=== PATIENT | female | born 1955 | race Caucasian/White ===

== ENCOUNTER → 2018-07-01 13:57 | Outpatient (CLI) | payer OTHER, SELFPAY ==
--- NOTE | 2018-07-01 | DI.MG.S_ITS ---
BILATERAL DIGITAL SCREENING MAMMOGRAM 3D/2D WITH CAD: 07/01/2018 CLINICAL: Routine screening. Comparison is made to exams dated: 04/08/2016 mammogram, 03/08/2015 mammogram, 03/05/2014 mammogram, and 02/22/2014 mammogram - [facility]. The tissue of both breasts is heterogeneously dense. This may lower the sensitivity of mammography. Current study was also evaluated with a Computer Aided Detection (CAD) system. No significant masses, calcifications, or other findings are seen in either breast. There has been no significant interval change. IMPRESSION: NEGATIVE There is no mammographic evidence of malignancy. A 1 year screening mammogram is recommended. This exam was interpreted at Station ID: [id number]. NOTE: For mammograms, a report in lay terms will be sent to the patient. Approximately 15% of breast malignancies will not be visualized mammographically. In the management of a palpable breast mass, a negative mammogram must not discourage biopsy of a clinically suspicious lesion. Electronically Signed By: Bess banegas/jatin:07/01/2018 15:11:30 letter sent: Normal Exam ACR BI-RADS Category 1: Negative 3341F
== END ==
PROVIDERS: Visit Provider Internal Medicine
DX: Z12.31 Encounter for screening mammogram for malignant neoplasm of breast (principal)
CPT/HCPCS: 77063; 77067

== ENCOUNTER → 2019-06-09 14:34 | Outpatient (CLI) | payer OTHER, SELFPAY | PROVIDERS: PCP Internal Medicine; Visit Provider Internal Medicine | DX: M85.88 Other specified disorders of bone density and structure, other site (principal); Z78.0 Asymptomatic menopausal state | CPT/HCPCS: 77080 ==

== ENCOUNTER → 2020-06-29 13:43 | Outpatient (CLI) | payer OTHER, SELFPAY ==
[2020-07-01 20:38] LABS: COVID19 Sendout Not Detected (Not Detect)
== END ==
PROVIDERS: PCP Internal Medicine; Visit Provider Physician Assistant
DX: Z11.59 Encounter for screening for other viral diseases (principal)
CPT/HCPCS: 87635

== ENCOUNTER 2020-07-02 06:46 | Day surgery (SDC) | payer OTHER, SELFPAY ==
[2020-07-02 07:23] VITALS: BMI 27.4
[2020-07-02] MEDS: LACTATED RINGERS 1,000 ML 42 ML IV (07:23)
[2020-07-02 07:33] VITALS: BP 119/75; PULSE 70; RESP 16; TEMP 36.4; O2SAT 100
--- NOTE | 2020-07-02 07:45 | PM.HP.1 ---
History of Present Illness History of Present Illness Date Patient Seen: 07/02/20 Time Patient Seen: 07:45 Chief complaint: SD Narrative: The patient is a woman here for screening colonoscopy. Her last exam was 5 years ago. She had a grandmother from colon cancer. She has a personal history of having a polyp. Patient History Medical History Actinic keratosis (Acute) Adenomatous polyp (Acute) Anemia (Inactive) Carpal tunnel syndrome (Chronic ~1999) Chicken pox (Resolved ~1964) Depression (Acute ~1997) Heart murmur (Acute) Hyperlipidemia (Acute) Measles (Resolved ~1961) Mumps (Resolved ~1965) Neck pain (Chronic) Osteopenia (Chronic ~2014) Osteoporosis (Acute ~2016) Plantar fasciitis (Chronic ~2017) Plantar warts (Inactive ~2008) Restless leg syndrome (Chronic) Right wrist fracture (Resolved ~2014) Rubella (Resolved) Tinnitus (Chronic ~2015) Wears glasses (Chronic) Surgical History Anesthesia (Resolved) History of oral surgery (Resolved) History of tonsillectomy (Resolved ~09/1975) Family & Social History Family History Father Cancer Hypertension Pulmonary embolism Mother Diabetes mellitus History of heart disease Hypertension Mental health problem Stroke Brother Mental health problem Brother Diabetes mellitus Back problem Sister Arthritis Back problem Sister Sjogren's disease Back problem Thyroid condition Sister Diabetes mellitus Back problem Metabolic syndrome Goiter Sister Sjogren's disease Herniated disc Hypertension Back problem Grandfather Alcoholic Grandmother History of heart disease Hypertension Grandfather History of heart disease Grandmother Cancer Social History: household members spouse Tobacco & Substance use: Smoking Status Never smoker alcohol intake current alcohol intake frequency a few times a week Substance Use Type does not use Meds Home Medications and Allergies Home Medications Medication Instructions Recorded Confirmed Type One-A-Day Women's 50 Plus 1 tab PO DAILY 07/02/20 07/02/20 History alendronate 70 mg PO QWEEK 07/02/20 07/02/20 History ascorbic acid (vitamin C) [Vitamin 1,000 mg PO DAILY 07/02/20 07/02/20 History C] mark [id number]-kde-bor 2 tab PO BID 07/02/20 07/02/20 History [Citracal-D3 Plus Magnesium] ferrous sulfate [iron] 65 mg PO DAILY 07/02/20 07/02/20 History glucos sul [id number]-C-Mn 1 cap PO 07/02/20 History [Glucosamine Chondroitin] omega-3 fatty acids-fish oil [Fish 1 cap PO DAILY 07/02/20 07/02/20 History Oil] ibhyo-7s-efd-epa-fish oil [[place]-3 360 cap PO DAILY 07/02/20 07/02/20 History Fish Oil] Allergies Allergy/AdvReac Type Severity Reaction Status Date / Time codeine Allergy Mild Nausea Verified 07/02/20 07:09 Review of Systems Review of Systems Narrative: Frequent bowel movements ROS: Yes All systems reviewed with the patient and are negative except as otherwise documented Exam Vital Signs (past 8 hours): - 07/02/20 07:33 Temperature 97.5 F L Pulse Rate 70 Respiratory Rate 16 Blood Pressure 119/75 Pulse Oximetry 100 Oxygen Delivery Method Room Air Narrative Exam Narrative: Pleasant cooperative patient no apparent distress. Lungs are clear to auscultation. No rales or rhonchi. Heart regular rate and rhythm no murmur gallop. Abdomen is soft nontender without mass. No obvious hernias. Patient is alert and oriented x3. Assessment & Plan Assessment & Plan narrative: The patient for a screening colonoscopy. I have discussed the procedure with them. Risks of bleeding, perforation which would necessitate major operation, failure to find remove all lesions, the potential tattoo were all discussed. All questions were answered. They wished to proceed.
--- NOTE | 2020-07-02 07:47 | PM.PREOP ---
Pre-operative Note COVID-19 COVID-19 status: Negative Result date/Date tested (Pos, Neg/Pending): 06/29/20 Interval Note History & Physical reviewed/Exam performed by Physician: Yes Changes to H&P: No ASA Class (for procedural sedation): I
[2020-07-02] MEDS: ONDANSETRON 4 MG/2 ML INJ IV (07:55)
--- NOTE | 2020-07-02 08:10 | PM.OP.ENDO ---
Operative Date/Time/Diagnoses Date of procedure: 07/02/20 Time of procedure: 08:10 Pre-op diagnosis: Screening exam Post-op diagnosis: same Procedure & Clinicians Study performed: Colonoscopies abandoned. Patient essentially had a flexible sigmoidoscopy Same procedure as scheduled: No (Could not complete the colonoscopy) Indications: Screening. Personal history of polyps. Last exam 5 years ago. Surgeon: Michele Card Procedure Notes SCOAP/Timeout: Performed Procedure in detail: The patient is placed in left lateral decubitus position underwent IV sedation directed by the surgeon consisting of fentanyl and Versed. Digital exam was remarkable for a marked decrease in sphincter tone. There are no palpable masses. The scope was inserted advanced through the rectum into the sigmoid. When I reached about 70-80 cm there was an unusual twist to the colon and I tried to negotiate this repeatedly. It would not dilator untwist I repositioned the patient backed the scope out reinserted it and still could not get beyond this point. Therefore the procedure was abandoned. The scope was removed. I could not see any abnormalities to this point. Recommend patient have a barium enema. It is not clear this is a stricture or just a twist that I could not on twist. Scope withdrawal time: Not applicable Sedation minutes: 11 Findings: other findings (Incomplete exam due to a twist in her colon.) Specimen(s): none sent Complications: none Post-procedure Recommendations: Other recommendation (Barium enema) Follow up: as needed Disposition: PACU
[2020-07-02] MEDS: fentaNYL 250 MCG/5 ML INJ IV (08:12)
[2020-07-02] MEDS: MIDAZOLAM 5 MG/5 ML VIAL IV (08:12)
[2020-07-02 08:15] VITALS: BP 115/70; PULSE 73; RESP 14; TEMP 36.2; O2SAT 93
[2020-07-02 08:20] VITALS: BP 116/70; PULSE 72; RESP 15; O2SAT 97
[2020-07-02 08:25] VITALS: BP 123/77; PULSE 80; RESP 18; O2SAT 97
[2020-07-02 08:30] VITALS: BP 129/82; PULSE 84; RESP 16
[2020-07-02 08:33] VITALS: BP 125/80; PULSE 70; RESP 16; TEMP 36.3; O2SAT 97
--- NOTE | 2020-07-02 08:52 | SUR.PHASEII ---
Pts on his way, pt up and ambulating gait steady, drinking po fluids without problems. Dressed now and waiting for ride. All dc instructions given and pt verbalizes understanding. IV dcd and site clear
--- NOTE | 2020-07-02 09:03 | SUR.PHASEII ---
Pt dcd in stable condition via wc to gerard frye
== END 2020-07-02 09:03 | disposition home or self-care (01) ==
PROVIDERS: PCP Nurse Practitioner; Referring Provider Nurse Practitioner; Visit Provider Specialist
PROC: 0DJD8ZZ Inspection of Lower Intestinal Tract, Via Natural or Artificial Opening Endoscopic (ICD-10-PCS; CPT 45378; principal; 2020-07-02 07:45)
DX: Z12.11 Encounter for screening for malignant neoplasm of colon (principal); Z80.0 Family history of malignant neoplasm of digestive organs; Z86.010 Personal history of colon polyps
CPT/HCPCS: G0104; 99152; J2250; J2405; J3010

== ENCOUNTER → 2020-07-09 10:23 | Outpatient (CLI) | payer OTHER, SELFPAY ==
--- NOTE | 2020-07-09 10:25 | DI.MG.S_ITS ---
BILATERAL DIGITAL SCREENING MAMMOGRAM 3D/2D WITH CAD: 07/09/2020 CLINICAL: Routine screening. Comparison is made to exams dated: 07/01/2018 mammogram - [facility], 04/08/2016 mammogram, and 03/08/2015 mammogram - [facility]. The tissue of both breasts is heterogeneously dense. This may lower the sensitivity of mammography. Current study was also evaluated with a Computer Aided Detection (CAD) system. No significant masses, calcifications, or other findings are seen in either breast. There has been no significant interval change. IMPRESSION: NEGATIVE There is no mammographic evidence of malignancy. A 1 year screening mammogram is recommended. This exam was interpreted at Station ID: [id number]. NOTE: For mammograms, a report in lay terms will be sent to the patient. Approximately 15% of breast malignancies will not be visualized mammographically. In the management of a palpable breast mass, a negative mammogram must not discourage biopsy of a clinically suspicious lesion. Electronically Signed By: Candido fontanez/jatin:07/09/2020 11:31:13 letter sent: Normal Exam ACR BI-RADS Category 1: Negative 3341F
== END ==
PROVIDERS: PCP Nurse Practitioner; Referring Provider Nurse Practitioner; Visit Provider Nurse Practitioner
DX: Z12.31 Encounter for screening mammogram for malignant neoplasm of breast (principal)
CPT/HCPCS: 77063; 77067

== ENCOUNTER → 2020-07-22 12:36 | Outpatient (CLI) | payer OTHER, SELFPAY ==
--- NOTE | 2020-07-22 12:38 | DI.RAD.S_ITS ---
PROCEDURE: FL BARIUM ENEMA W AIR CONTRAST INDICATIONS: screening. Unable to complete colonoscopy COMPARISON: None. FINDINGS: KUB: Pre-procedural strategic marketing leader film demonstrates a normal bowel gas pattern. No suspicious abdominal calcifications. Visualized solid organ contours are normal in size. No suspicious bony lesions. Colon: There is adequate air-contrast opacification from the rectum to the cecum. No strictures, ulcers, polyps, or masses are seen. Haustral folds are normal in thickness throughout. No diverticula. IMPRESSION: Negative examination as above. Dictated by: Italo Crawford M.D. on 07/22/2020 at 16:46 Approved by: Italo Crawford M.D. on 07/22/2020 at 16:50
== END ==
PROVIDERS: PCP Nurse Practitioner; Referring Provider Specialist; Visit Provider Specialist
DX: Z12.11 Encounter for screening for malignant neoplasm of colon (principal)
CPT/HCPCS: 74280

== ENCOUNTER → 2020-08-02 07:15 | Outpatient (CLI) | payer OTHER, SELFPAY ==
[2020-08-02 08:40] LABS: Add Manual Diff / Slide Review NO; Basophils Absolute Auto 0 /uL (0-100); Basophils Percent Auto 0.8 % (0-2); Eosinophils Absolute Auto 100 /uL (0-450); Eosinophils Percent Auto 1.5 % (2-4); Hematocrit 38.2 % (36-46); Hemoglobin 12.8 g/dL (12.0-16.0); Lymphocytes Absolute Auto 1500 /uL (1100-4500); Lymphocytes Percent Auto 30.6 % (25-40); Mean Corpuscular HGB Conc 33.5 % (30-36); Mean Corpuscular Volume 92.8 fL (80-100); Monocytes Absolute Auto 500 /uL (0-900); Monocytes Percent Auto 10.6 % (3-14); Neutrophils Absolute Auto 2800 /uL (1500-7000); Neutrophils Percent Auto 56.5 % (50-75); Platelet Count 205 X10^3/uL (150-400); Red Blood Cell Count 4.12 X10^6/uL (4.0-5.2); Red Cell Distribution Width 12.8 % (11.6-14.8); White Blood Cell Count 4.9 X10^3/uL (4.5-11.0)
[2020-08-02 09:04] LABS: Creatinine Urine Random 54.9 mg/dL
[2020-08-02 09:10] LABS: Alanine Aminotransferase 32 IU/L (<35); Albumin 3.9 g/dL (3.5-5.0); Albumin Globulin Ratio 1.5 (1.0-2.8); Alkaline Phosphatase 61 U/L (38-126); Aspartate Aminotransferase 36 IU/L (14-36); BUN Creatinine Ratio 19.8 (6-22); Bilirubin Total 0.8 mg/dL (0.2-1.3); Blood Urea Nitrogen 16 mg/dL (7-17); Calcium 8.7 mg/dL (8.4-10.2); Carbon Dioxide 28 mmol/L (22-32); Chloride 103 mmol/L (98-107); Cholesterol 209 mg/dL (140-199); Estimated Glomerular Filt Rate > 60.0 mL/min (>60); Globulin 2.6 g/dL (1.7-4.1); Glucose 97 mg/dL (80-110); HDL Cholesterol 66 mg/dL (40-60); HEMOLYSIS < 15 (0-50); LDL Cholesterol Calculated 129 mg/dL (<100); Potassium 4.3 mmol/L (3.4-5.1); Sodium 135 mmol/L (137-145); Total Protein 6.5 g/dL (6.3-8.2); Triglycerides 71 mg/dL (35-150)
[2020-08-02 09:11] LABS: Microalbumin Urine Random < 0.6 mg/dL (0-1.6)
[2020-08-02 09:20] LABS: Free T3, Triiodothyronine Free 2.89 pg/mL (2.77-5.27); Free T4, Direct Thyroxine 0.87 ng/dL (0.78-2.19)
[2020-08-02 09:34] LABS: Thyroid Stimulating Hormone 1.32 uIU/mL (0.47-4.68)
== END ==
PROVIDERS: PCP Nurse Practitioner; Referring Provider Nurse Practitioner; Visit Provider Nurse Practitioner
DX: D36.9 Benign neoplasm, unspecified site (principal); E78.5 Hyperlipidemia, unspecified; F32.9 Major depressive disorder, single episode, unspecified; L57.0 Actinic keratosis; M85.80 Other specified disorders of bone density and structure, unspecified site; R01.1 Cardiac murmur, unspecified; R19.8 Other specified symptoms and signs involving the digestive system and abdomen
CPT/HCPCS: 36415; 80053; 80061; 82043; 82570; 84439; 84443; 84481; 85025

== ENCOUNTER 2021-03-11 09:45 | Outpatient (RCR) | payer OTHER, SELFPAY ==
--- NOTE | 2020-11-07 12:08 | PT.OIE ---
Current Diagnoses Other specified diseases of anus and rectum (11/05/20) Past Medical History (Last Reviewed 07/02/20 @ 07:46 by Michele Card MD) Actinic keratosis Adenomatous polyp Anemia Carpal tunnel syndrome (~1999) Chicken pox (~1964) Depression (~1997) Heart murmur Hyperlipidemia Measles (~1961) Mumps (~1965) Neck pain Osteopenia (~2015) Osteoporosis (~2017) Plantar fasciitis (~2017) Plantar warts (~2008) Restless leg syndrome Right wrist fracture (~2014) Rubella Tinnitus (~2016) Wears glasses Past Surgical History (Last Reviewed 07/02/20 @ 07:46 by Michele Card MD) Anesthesia History of oral surgery History of tonsillectomy (~09/1975) Visit Care Team Role Provider Type ARUNA Laboy Attending Provider Advanced Raiser Helper Primary Care Provider Referring Provider Specialty: [facility] Practice Address: [address] [place] [address] Email: [email or web address] Physical Therapy Initial Evaluation PT-OP-A Visit Information Start: 11/05/20 14:43 Freq: Status: Active Protocol: Document 11/05/20 16:03 [facility] (Rec: 11/05/20 16:27 [facility] [id number]) Out-Patient Physical Therapy Visit Information Visit Information Visit Type Initial Evaluation Visit Start Time 16:05 Visit Stop Time 16:55 Total Visit Minutes 50 Visit Number 1 Evaluation Information Evaluation Date 11/05/20 PT-OP-B Current Condition Start: 11/05/20 14:43 Freq: Status: Active Protocol: Document 11/05/20 16:03 [facility] (Rec: 11/05/20 16:27 [facility] [id number]) Current Condition History of Current Condition Onset Date last couple of years Current Complaints fecal incontinence and small amounts of urinary discharge. History of Current Condition Sometimes if she has a bowel movement that isn't as solid she will have some leakage. Wears a poise micro liner. If she leaks it happens one time a day and that is it. She was having more of a issue 6 months ago. Very small amounts of urinary leakage. She is using a compound estrogen cream. She is taking the estrogen to help her tolerate a vaginal exam. She has been taking the cream for over a month. She walks 6-7 miles frequently and notes a very small amount of urinary leakage following. Treatment Goals Patient/Caregiver Goals pts goals include improving strength of the rectal sphincter and pelvic floor to decrease fecal incontinence PT-OP-C Subjective Start: 11/05/20 14:43 Freq: Status: Active Protocol: Document 11/05/20 16:00 [facility] (Rec: 11/07/20 10:43 [facility] [id number]) Patient Questionnaires Pelvic Pain and Urgency/Frequency Patient Symptom Scale Pelvic Pain Score 8 OP-PT Pain Assessment Comments Pain Comments Katarina reports pain with vaginal exams and when she was sexually active. She has avoided pelvic exams due to pain. She is now using a compounding estrogen cream to help with tissue irritation. PT-OP-I Pelvic Floor Start: 11/05/20 14:43 Freq: Status: Active Protocol: Document 11/05/20 17:44 [facility] (Rec: 11/05/20 17:48 [facility] [id number]) Pelvic Floor Assessment Urine Pelvic Floor Surgery No Other Urinary Symptoms small amounts of urinary leakage after a long walk Bowel Bowel Surgery No Bowel Symptoms Fecal Leakage Other Bowel Symptoms fecal leakage is not frequent but if Katarina has a bowel movement that is not as firm she may experience some fecal soiling. She also reports that sometimes she doesn't fully empty and then experiences some leakage. Pelvic Clock Pelvic Clock 12-3 Atrophy Pelvic Clock 3-6 Atrophy Pelvic Clock 6-9 Atrophy Pelvic Clock 9-12 Atrophy Prolapse Uterine Prolapse Grade 1 Cystocele Grade 1 SEMG (uV) Baseline 1.0 10 Second Contraction 8.3 Holding Fair Stability of Hold Fair SEMG Stability of Rest Good Contraction Ability Manual Muscle Testing Left 3 Manual Muscle Testing Right 3 Manual Muscle Testing Posterior 3 Muscle Endurance (Seconds) 3 Comments Pelvic Floor Comments anal sphincter exam: pt is able to contract her anal sphincter with rectal exam, there is decreased endurance with ability to hold the contraction. PT-OP-Q Treatments Start: 11/05/20 14:43 Freq: Status: Active Protocol: Document 11/05/20 17:38 [facility] (Rec: 11/05/20 17:44 [facility] [id number]) Therapeutic Exercises Supine Exercises 1 Supine Exercise Name pelvic floor long holds Reps/Minutes 10 seconds on 10 seconds off Comments EMG biofeedback was used to help facilitate the pelvic floor PT-OP-T Assessment and Plan Start: 11/05/20 14:43 Freq: Status: Active Protocol: Document 11/05/20 16:00 [facility] (Rec: 11/07/20 10:52 [facility] [id number]) Physical Therapy Assessment Rehab Potential Rehabilitation Potential Good Evaluation Complexity Number of Personal Factors/Comorbidities 0 Number of Body Systems Impaired 1-2 Clinical Presentation at Evaluation Stable Impairments Impairments Strength,Tone Other Impairments fecal incontinence Goals decreased tone of the rectal sphincter Bindery Helper Goal (LTG) Katarina has improved control of the rectal sphincter and decreased c/o fecal leakage with looser stool. LTG Duration 8 weeks decreased endurance of the pelvic floor Impairment decreased endurance of the levator ani Decreased strength of the levator ani Impairment decreased strength of the levator ani Intermediate Goal (LTG) Katarina is able to increase her strength of the levator ani by one muscle grade to 4/5 MMT for improved support of the rectum decreasing complaints of fecal incontinence. Assessment Summary Assessment Katarina is a 65 year old female referred to PT with anal sphincter incompetence and complaints of fecal leakage that can occur if her bowel movements are not firm enough. She wears a micro liner for protection and needs to change this only one time per day if she has a leak. With pelvic floor examination today there is atrophy noted in all aspects of the levator ani. Katarina has been using the compounded estrogen cream for approximately 1 month now and she was able to tolerate pelvic palpation and MMT. With MMT she tests a 3/5 in all parts of the levator ani. A rectal examination was performed and Katarina was able to to elicit a anal sphincter contraction, although it was weak. Her endurance was week. Pelvic floor strengthening may be very helpful for her. I did start her on EMG biofeedback this visit and she tolerated the sensor well. I will start her with the vaginal sensor working on the posterior wall of the levator ani and we may switch to the rectal sensor if needed for further strengthening. Physical Therapy Plan Frequency and Duration Frequency of Treatment 1x/Week Duration of Treatment 8 Plan of Care Start Date 11/05/20 Plan of Care End Date 12/31/20 Therapeutic Interventions Therapeutic Interventions Home Exercise Program, Neuromuscular Re-education, Patient/Caregiver Education, Self-Care/Home Management, Therapeutic Exercises Modalities Biofeedback Next Visit Focus/Plan Next Note Type Treatment Note Next Visit Plan EMG biofeedback for pelvic floor strengthening and improved tone of the posterior wall of the levator ani.
--- NOTE | 2020-11-07 12:10 | PT.OPPOC ---
Physical, Occupational & Speech Therapy At [facility] Current Diagnoses Other specified diseases of anus and rectum (11/05/20) Visit Care Team Role Provider Type ARUNA Laboy Attending Provider Advanced Rag Washer Primary Care Provider Referring Provider Specialty: Family Practice Address: [address] [place] [address], [facility] Email: [email or web address] Plan Of Care PT-OP-T Assessment and Plan Start: 11/05/20 14:43 Freq: Status: Active Protocol: Document 11/05/20 16:00 [facility] (Rec: 11/07/20 10:52 [facility] [id number]) Physical Therapy Assessment Rehab Potential Rehabilitation Potential Good Evaluation Complexity Number of Personal Factors/Comorbidities 0 Number of Body Systems Impaired 1-2 Clinical Presentation at Evaluation Stable Impairments Impairments Strength,Tone Other Impairments fecal incontinence Goals decreased tone of the rectal sphincter Door Maker Goal (LTG) Katarina has improved control of the rectal sphincter and decreased c/o fecal leakage with looser stool. LTG Duration 8 weeks decreased endurance of the pelvic floor Impairment decreased endurance of the levator ani Decreased strength of the levator ani Impairment decreased strength of the levator ani Door Maker Goal (LTG) Katarina is able to increase her strength of the levator ani by one muscle grade to 4/5 MMT for improved support of the rectum decreasing complaints of fecal incontinence. Assessment Summary Assessment Katarina is a 65 year old female referred to PT with anal sphincter incompetence and complaints of fecal leakage that can occur if her bowel movements are not firm enough. She wears a micro liner for protection and needs to change this only one time per day if she has a leak. With pelvic floor examination today there is atrophy noted in all aspects of the levator ani. Katarina has been using the compounded estrogen cream for approximately 1 month now and she was able to tolerate pelvic palpation and MMT. With MMT she tests a 3/5 in all parts of the levator ani. A rectal examination was performed and Katarina was able to to elicit a anal sphincter contraction, although it was weak. Her endurance was week. Pelvic floor strengthening may be very helpful for her. I did start her on EMG biofeedback this visit and she tolerated the sensor well. I will start her with the vaginal sensor working on the posterior wall of the levator ani and we may switch to the rectal sensor if needed for further strengthening. Physical Therapy Plan Frequency and Duration Frequency of Treatment 1x/Week Duration of Treatment 8 Plan of Care Start Date 11/05/20 Plan of Care End Date 12/31/20 Therapeutic Interventions Therapeutic Interventions Home Exercise Program, Neuromuscular Re-education, Patient/Caregiver Education, Self-Care/Home Management, Therapeutic Exercises Modalities Biofeedback Next Visit Focus/Plan Next Note Type Treatment Note Next Visit Plan EMG biofeedback for pelvic floor strengthening and improved tone of the posterior wall of the levator ani. Plan of Care Dates Plan of Care Start Date 11/05/20 Plan of Care End Date 12/31/20 Electronically Signed by: Adwoa Sauceda, PT 11/07/20 [id number] Please Sign and Return: I have reviewed this Plan of Care and certify that the skilled therapy services above are required to meet the patient?s needs. Physician Signature Date Printed Name and Credentials Clinical Instructor Signature Printed Name and Credentials
--- NOTE | 2020-11-12 16:52 | PT.OTN ---
Current Diagnoses Other specified diseases of anus and rectum (11/12/20) Physical Therapy Treatment Note PT-OP-A Visit Information Start: 11/05/20 14:43 Freq: Status: Active Protocol: Document 11/12/20 14:38 [facility] (Rec: 11/12/20 15:24 [facility] [id number]) Out-Patient Physical Therapy Visit Information Visit Information Visit Type Treatment Note Visit Start Time 14:40 Visit Stop Time 15:20 Total Visit Minutes 40 Visit Number 2 PT-OP-B Current Condition Start: 11/05/20 14:43 Freq: Status: Active Protocol: Document 11/05/20 16:03 [facility] (Rec: 11/05/20 16:27 [facility] [id number]) Current Condition History of Current Condition Onset Date last couple of years Current Complaints fecal incontinence and small amounts of urinary discharge. History of Current Condition Sometimes if she has a bowel movement that isn't as solid she will have some leakage. Wears a poise micro liner. If she leaks it happens one time a day and that is it. She was having more of a issue 6 months ago. Very small amounts of urinary leakage. She is using a compound estrogen cream. She is taking the estrogen to help her tolerate a vaginal exam. SHe has been taking the cream for over a month. She walks 6-7 miles frequently and notes a very small amount of urinary leakage following. Treatment Goals Patient/Caregiver Goals pts goals include improving strength of the rectal sphincter and pelvic floor to decrease fecal incontinence PT-OP-C Subjective Start: 11/05/20 14:43 Freq: Status: Active Protocol: Document 11/12/20 14:38 [facility] (Rec: 11/12/20 15:24 [facility] [id number]) OP-PT Subjective Patient Comments Patient Comments pt has been been able to do her exercises this week PT-OP-I Pelvic Floor Start: 11/05/20 14:43 Freq: Status: Active Protocol: Document 11/05/20 17:44 [facility] (Rec: 11/05/20 17:48 [facility] [id number]) Pelvic Floor Assessment Urine Pelvic Floor Surgery No Other Urinary Symptoms small amounts of urinary leakage after a long walk Bowel Bowel Surgery No Bowel Symptoms Fecal Leakage Other Bowel Symptoms fecal leakage is not frequent but if Katarina has a bowel movement that is not as firm she may experience some fecal soiling. She also reports that sometimes she doesn't fully empty and then experiences some leakage. Pelvic Clock Pelvic Clock 12-3 Atrophy Pelvic Clock 3-6 Atrophy Pelvic Clock 6-9 Atrophy Pelvic Clock 9-12 Atrophy Prolapse Uterine Prolapse Grade 1 Cystocele Grade 1 SEMG (uV) Baseline 1.0 10 Second Contraction 8.3 Holding Fair Stability of Hold Fair SEMG Stability of Rest Good Contraction Ability Manual Muscle Testing Left 3 Manual Muscle Testing Right 3 Manual Muscle Testing Posterior 3 Muscle Endurance (Seconds) 3 Comments Pelvic Floor Comments anal spincter examinal: pt is able to contract her anal spinchter with rectal exam, there is decreased endurance with ability to hold the contraction. PT-OP-Q Treatments Start: 11/05/20 14:43 Freq: Status: Active Protocol: Document 11/12/20 16:39 [facility] (Rec: 11/12/20 16:52 [facility] [id number]) Therapeutic Exercises Supine Exercises templates for eccentric control and coordination Supine Exercise Name templates for eccentric control and coordination Comments EMG biofeedback was used for pt assist with pelvic floor faciltation pelvic floor quick contractions Supine Exercise Name pelvic floor quick contractions Reps/Minutes x 10 reps 2 sec on 2 sec off 1 Supine Exercise Name pelvic floor long holds Reps/Minutes 10 seconds on 10 seconds off Comments EMG biofeedback was used to help facilitate the pelvic floor Self-Care/Home Management Treatment Activities Self-Care/Home Management Activities pt shown squatty potty for home use, ILU self massage for home and how to splint with the perineum to assist with fully emptying her bowels PT-OP-T Assessment and Plan Start: 11/05/20 14:43 Freq: Status: Active Protocol: Document 11/12/20 16:39 [facility] (Rec: 11/12/20 16:52 [facility] [id number]) Physical Therapy Assessment Assessment Summary Assessment Katarina is doing well with her pelvic floor strengthening. Her average today increased to 13.1 uv holds. Today I instructed her in ILU massage to help with fully emptying her bladder. She was also shown a squatty potty as changing this hip angle may also be very beneficial for her. Physical Therapy Plan Frequency and Duration Frequency of Treatment 1x/Week Duration of Treatment 8 Plan of Care Start Date 11/05/20 Plan of Care End Date 12/31/20 Therapeutic Interventions Therapeutic Interventions Home Exercise Program, Neuromuscular Re-education, Patient/Caregiver Education, Self-Care/Home Management, Therapeutic Exercises Modalities Biofeedback Next Visit Focus/Plan Next Note Type Treatment Note Next Visit Plan possible trial of NMES for improved sensation of the rectal sphincter next visit.
--- NOTE | 2020-12-03 16:59 | PT.OTN ---
Current Diagnoses Other specified diseases of anus and rectum (12/03/20) Physical Therapy Treatment Note PT-OP-A Visit Information Start: 11/05/20 14:43 Freq: Status: Active Protocol: Document 12/03/20 14:45 [facility] (Rec: 12/03/20 14:51 [facility] [id number]) Out-Patient Physical Therapy Visit Information Visit Information Visit Type Treatment Note Visit Start Time 14:30 Visit Stop Time 15:15 Total Visit Minutes 45 Visit Number 3 PT-OP-B Current Condition Start: 11/05/20 14:43 Freq: Status: Active Protocol: Document 11/05/20 16:03 [facility] (Rec: 11/05/20 16:27 [facility] [id number]) Current Condition History of Current Condition Onset Date last couple of years Current Complaints fecal incontinence and small amounts of urinary discharge. History of Current Condition Sometimes if she has a bowel movement that isn't as solid she will have some leakage. Wears a poise micro liner. If she leaks it happens one time a day and that is it. She was having more of a issue 6 months ago. Very small amounts of urinary leakage. She is using a compound estrogen cream. She is taking the estrogen to help her tolerate a vaginal exam. SHe has been taking the cream for over a month. She walks 6-7 miles frequently and notes a very small amount of urinary leakage following. Treatment Goals Patient/Caregiver Goals pts goals include improving strength of the rectal sphincter and pelvic floor to decrease fecal incontinence PT-OP-C Subjective Start: 11/05/20 14:43 Freq: Status: Active Protocol: Document 12/03/20 14:45 [facility] (Rec: 12/03/20 14:51 [facility] [id number]) OP-PT Subjective Patient Comments Patient Comments pt reports she has had a few control issues where she lost stool. She feels like she almost everytime she urinates she has a bowel movement. 80 /20 percent of the time. This has been happening for the past few years at least. PT-OP-I Pelvic Floor Start: 11/05/20 14:43 Freq: Status: Active Protocol: Document 11/05/20 17:44 [facility] (Rec: 11/05/20 17:48 [facility] [id number]) Pelvic Floor Assessment Urine Pelvic Floor Surgery No Other Urinary Symptoms small amounts of urinary leakage after a long walk Bowel Bowel Surgery No Bowel Symptoms Fecal Leakage Other Bowel Symptoms fecal leakage is not frequent but if Katarina has a bowel movement that is not as firm she may experience some fecal soiling. She also reports that sometimes she doesn't fully empty and then experiences some leakage. Pelvic Clock Pelvic Clock 12-3 Atrophy Pelvic Clock 3-6 Atrophy Pelvic Clock 6-9 Atrophy Pelvic Clock 9-12 Atrophy Prolapse Uterine Prolapse Grade 1 Cystocele Grade 1 SEMG (uV) Baseline 1.0 10 Second Contraction 8.3 Holding Fair Stability of Hold Fair SEMG Stability of Rest Good Contraction Ability Manual Muscle Testing Left 3 Manual Muscle Testing Right 3 Manual Muscle Testing Posterior 3 Muscle Endurance (Seconds) 3 Comments Pelvic Floor Comments anal spincter examinal: pt is able to contract her anal spinchter with rectal exam, there is decreased endurance with ability to hold the contraction. PT-OP-Q Treatments Start: 11/05/20 14:43 Freq: Status: Active Protocol: Document 12/03/20 16:51 [facility] (Rec: 12/03/20 16:59 [facility] [id number]) Therapeutic Exercises Supine Exercises templates for eccentric control and coordination Supine Exercise Name templates for eccentric control and coordination Comments EMG biofeedback was used for pt assist with pelvic floor faciltation pelvic floor quick contractions Supine Exercise Name pelvic floor quick contractions Reps/Minutes x 10 reps 2 sec on 2 sec off 1 Supine Exercise Name pelvic floor long holds Reps/Minutes 10 seconds on 10 seconds off Comments EMG biofeedback was used to help facilitate the pelvic floor Neuro Re-Education Treatment Other Activities NMES rectal sensor Details rectal sensor NMES Reps/Duration 8 Comments pt had good tolerance for NMES today, she was able to work with pelvic floor contractions with the stimulation PT-OP-T Assessment and Plan Start: 11/05/20 14:43 Freq: Status: Active Protocol: Document 12/03/20 16:51 [facility] (Rec: 12/03/20 16:59 [facility] [id number]) Physical Therapy Assessment Assessment Summary Assessment encouraged squatty potty for Katarina, began recal sensor today with both EMG biofeedback as well as NMES. Katarina demonstrated a average work of 18.2 with maximum contraction of 31.4 uv. Physical Therapy Plan Frequency and Duration Frequency of Treatment 1x/Week Duration of Treatment 8 Plan of Care Start Date 11/05/20 Plan of Care End Date 12/31/20 Therapeutic Interventions Therapeutic Interventions Home Exercise Program, Neuromuscular Re-education, Patient/Caregiver Education, Self-Care/Home Management, Therapeutic Exercises Modalities Biofeedback Next Visit Focus/Plan Next Note Type Treatment Note Next Visit Plan continue with rectal sensor, increase NMES time next visit
--- NOTE | 2020-12-10 17:37 | PT.OTN ---
Current Diagnoses Other specified diseases of anus and rectum (12/10/20) Physical Therapy Treatment Note PT-OP-A Visit Information Start: 11/05/20 14:43 Freq: Status: Active Protocol: Document 12/10/20 14:34 [facility] (Rec: 12/10/20 14:39 [facility] [id number]) Out-Patient Physical Therapy Visit Information Visit Information Visit Type Treatment Note Visit Start Time 14:30 Visit Stop Time 15:15 Total Visit Minutes 45 Visit Number 4 PT-OP-B Current Condition Start: 11/05/20 14:43 Freq: Status: Active Protocol: Document 11/05/20 16:03 [facility] (Rec: 11/05/20 16:27 [facility] [id number]) Current Condition History of Current Condition Onset Date last couple of years Current Complaints fecal incontinence and small amounts of urinary discharge. History of Current Condition Sometimes if she has a bowel movement that isn't as solid she will have some leakage. Wears a poise micro liner. If she leaks it happens one time a day and that is it. She was having more of a issue 6 months ago. Very small amounts of urinary leakage. She is using a compound estrogen cream. She is taking the estrogen to help her tolerate a vaginal exam. SHe has been taking the cream for over a month. She walks 6-7 miles frequently and notes a very small amount of urinary leakage following. Treatment Goals Patient/Caregiver Goals pts goals include improving strength of the rectal sphincter and pelvic floor to decrease fecal incontinence PT-OP-C Subjective Start: 11/05/20 14:43 Freq: Status: Active Protocol: Document 12/10/20 14:34 [facility] (Rec: 12/10/20 14:39 [facility] [id number]) OP-PT Subjective Patient Comments Patient Comments pt reports she tried the squatty potty but not sure it has helped her at at. She feels like she has a hard time isolating her rectal sphincter. She did note this week that she was able to void a few times without having a bowel movement at the same time Patient Reported Progress Improving PT-OP-I Pelvic Floor Start: 11/05/20 14:43 Freq: Status: Active Protocol: Document 11/05/20 17:44 [facility] (Rec: 11/05/20 17:48 [facility] [id number]) Pelvic Floor Assessment Urine Pelvic Floor Surgery No Other Urinary Symptoms small amounts of urinary leakage after a long walk Bowel Bowel Surgery No Bowel Symptoms Fecal Leakage Other Bowel Symptoms fecal leakage is not frequent but if Katarina has a bowel movement that is not as firm she may experience some fecal soiling. She also reports that sometimes she doesn't fully empty and then experiences some leakage. Pelvic Clock Pelvic Clock 12-3 Atrophy Pelvic Clock 3-6 Atrophy Pelvic Clock 6-9 Atrophy Pelvic Clock 9-12 Atrophy Prolapse Uterine Prolapse Grade 1 Cystocele Grade 1 SEMG (uV) Baseline 1.0 10 Second Contraction 8.3 Holding Fair Stability of Hold Fair SEMG Stability of Rest Good Contraction Ability Manual Muscle Testing Left 3 Manual Muscle Testing Right 3 Manual Muscle Testing Posterior 3 Muscle Endurance (Seconds) 3 Comments Pelvic Floor Comments anal spincter examinal: pt is able to contract her anal spinchter with rectal exam, there is decreased endurance with ability to hold the contraction. PT-OP-Q Treatments Start: 11/05/20 14:43 Freq: Status: Active Protocol: Document 12/10/20 17:30 [facility] (Rec: 12/10/20 17:36 [facility] [id number]) Therapeutic Exercises Supine Exercises pelvic floor quick contractions Supine Exercise Name pelvic floor quick contractions Reps/Minutes x 10 reps 2 sec on 2 sec off 1 Supine Exercise Name pelvic floor long holds Reps/Minutes 10 seconds on 10 seconds off Comments EMG biofeedback was used to help facilitate the pelvic floor Manual Therapy Treatment Manual Techniques manual release of the left side wall, descending colon Type MFR left desending colon Body Position Hooklying Reps/Duration x 10 min Neuro Re-Education Treatment Other Activities NMES rectal sensor Details NMES with rectal sensor Reps/Duration 10 min Comments able to increase contraction intensity on NMES today PT-OP-T Assessment and Plan Start: 11/05/20 14:43 Freq: Status: Active Protocol: Document 12/10/20 17:30 [facility] (Rec: 12/10/20 17:36 [facility] [id number]) Physical Therapy Assessment Assessment Summary Assessment pt had mentioned in her colonoscopy they were not able to go through her sigmoid colon due to a turn in the colon. They did a enema instead. I worked today on MFR on the left side of the abdominal wall which was very tight. Physical Therapy Plan Frequency and Duration Frequency of Treatment 1x/Week Duration of Treatment 8 Plan of Care Start Date 11/05/20 Plan of Care End Date 12/31/20 Therapeutic Interventions Therapeutic Interventions Home Exercise Program, Neuromuscular Re-education, Patient/Caregiver Education, Self-Care/Home Management, Therapeutic Exercises Modalities Biofeedback Next Visit Focus/Plan Next Note Type Treatment Note Next Visit Plan continue with rectal sensor, NMES, and MFR next visit. Also use vaginal sensor to work on posterior wall of pelvic floor
--- NOTE | 2020-12-17 17:51 | PT.OTN ---
Current Diagnoses Other specified diseases of anus and rectum (12/17/20) Physical Therapy Treatment Note PT-OP-A Visit Information Start: 11/05/20 14:43 Freq: Status: Active Protocol: Document 12/17/20 15:01 [facility] (Rec: 12/17/20 15:07 [facility] [id number]) Out-Patient Physical Therapy Visit Information Visit Information Visit Type Treatment Note Visit Start Time 14:40 Visit Stop Time 15:15 Total Visit Minutes 35 Visit Number 5 PT-OP-B Current Condition Start: 11/05/20 14:43 Freq: Status: Active Protocol: Document 11/05/20 16:03 [facility] (Rec: 11/05/20 16:27 [facility] [id number]) Current Condition History of Current Condition Onset Date last couple of years Current Complaints fecal incontinence and small amounts of urinary discharge. History of Current Condition Sometimes if she has a bowel movement that isn't as solid she will have some leakage. Wears a poise micro liner. If she leaks it happens one time a day and that is it. She was having more of a issue 6 months ago. Very small amounts of urinary leakage. She is using a compound estrogen cream. She is taking the estrogen to help her tolerate a vaginal exam. SHe has been taking the cream for over a month. She walks 6-7 miles frequently and notes a very small amount of urinary leakage following. Treatment Goals Patient/Caregiver Goals pts goals include improving strength of the rectal sphincter and pelvic floor to decrease fecal incontinence PT-OP-C Subjective Start: 11/05/20 14:43 Freq: Status: Active Protocol: Document 12/17/20 15:01 [facility] (Rec: 12/17/20 15:07 [facility] [id number]) OP-PT Subjective Patient Comments Patient Comments pt reports she has been doing her exercises 2 times per week . She notes she will order the NMES unit for home use. She hasn't noticed a big change in her symptoms at this point but can tell when her stool is more gelatinous that she can't hold it back with flattulance Patient Reported Progress Same PT-OP-I Pelvic Floor Start: 11/05/20 14:43 Freq: Status: Active Protocol: Document 11/05/20 17:44 [facility] (Rec: 11/05/20 17:48 [facility] [id number]) Pelvic Floor Assessment Urine Pelvic Floor Surgery No Other Urinary Symptoms small amounts of urinary leakage after a long walk Bowel Bowel Surgery No Bowel Symptoms Fecal Leakage Other Bowel Symptoms fecal leakage is not frequent but if Katarina has a bowel movement that is not as firm she may experience some fecal soiling. She also reports that sometimes she doesn't fully empty and then experiences some leakage. Pelvic Clock Pelvic Clock 12-3 Atrophy Pelvic Clock 3-6 Atrophy Pelvic Clock 6-9 Atrophy Pelvic Clock 9-12 Atrophy Prolapse Uterine Prolapse Grade 1 Cystocele Grade 1 SEMG (uV) Baseline 1.0 10 Second Contraction 8.3 Holding Fair Stability of Hold Fair SEMG Stability of Rest Good Contraction Ability Manual Muscle Testing Left 3 Manual Muscle Testing Right 3 Manual Muscle Testing Posterior 3 Muscle Endurance (Seconds) 3 Comments Pelvic Floor Comments anal spincter examinal: pt is able to contract her anal spinchter with rectal exam, there is decreased endurance with ability to hold the contraction. PT-OP-Q Treatments Start: 11/05/20 14:43 Freq: Status: Active Protocol: Document 12/17/20 17:46 [facility] (Rec: 12/17/20 17:50 [facility] [id number]) Therapeutic Exercises Supine Exercises 1 Supine Exercise Name pelvic floor long holds Reps/Minutes 10 seconds on 10 seconds off Comments EMG biofeedback was used to help facilitate the pelvic floor Neuro Re-Education Treatment Other Activities NMES vaginal sensor Details NMES vaginal sensor Reps/Duration 10 min Comments pt shown how to set up the unit for home Self-Care/Home Management Treatment Education Patient Education Home Exercise Program Other Education NMES set up for home PT-OP-T Assessment and Plan Start: 11/05/20 14:43 Freq: Status: Active Protocol: Document 12/17/20 17:46 [facility] (Rec: 12/17/20 17:50 [facility] [id number]) Physical Therapy Assessment Assessment Summary Assessment pt plans on renting a home NMES unit that she will be able to use both vaginally and rectally to help with strengthening over the next month. She has made gains with her strengthening up to this point. She will work on her own for the next month and recheck in 4 weeks Physical Therapy Plan Frequency and Duration Frequency of Treatment 1x/Week Duration of Treatment 8 Plan of Care Start Date 11/05/20 Plan of Care End Date 12/31/20 Next Visit Focus/Plan Next Note Type Treatment Note Next Visit Plan recheck tone of the pelvic floor next visit and assess how pt has done with the home NMES unit.
--- NOTE | 2021-01-14 17:08 | PT.OTN ---
Current Diagnoses Other specified diseases of anus and rectum (01/14/21) Physical Therapy Treatment Note PT-OP-A Visit Information Start: 11/05/20 14:43 Freq: Status: Active Protocol: Document 01/14/21 10:41 [facility] (Rec: 01/14/21 11:00 [facility] [id number]) Out-Patient Physical Therapy Visit Information Visit Information Visit Type Progress Note Visit Start Time 10:42 Visit Stop Time 11:15 Total Visit Minutes 38 Visit Number 6 PT-OP-B Current Condition Start: 11/05/20 14:43 Freq: Status: Active Protocol: Document 11/05/20 16:03 [facility] (Rec: 11/05/20 16:27 [facility] [id number]) Current Condition History of Current Condition Onset Date last couple of years Current Complaints fecal incontinence and small amounts of urinary discharge. History of Current Condition Sometimes if she has a bowel movement that isn't as solid she will have some leakage. Wears a poise micro liner. If she leaks it happens one time a day and that is it. She was having more of a issue 6 months ago. Very small amounts of urinary leakage. She is using a compound estrogen cream. She is taking the estrogen to help her tolerate a vaginal exam. SHe has been taking the cream for over a month. She walks 6-7 miles frequently and notes a very small amount of urinary leakage following. Treatment Goals Patient/Caregiver Goals pts goals include improving strength of the rectal sphincter and pelvic floor to decrease fecal incontinence PT-OP-C Subjective Start: 11/05/20 14:43 Freq: Status: Active Protocol: Document 01/14/21 10:41 [facility] (Rec: 01/14/21 11:00 [facility] [id number]) OP-PT Subjective Patient Comments Patient Comments Pt has had her NMES unit now for 2 weeks. She hasn't had a lot of leakage problems lately. She also states she hasn't had loose stool PT-OP-I Pelvic Floor Start: 11/05/20 14:43 Freq: Status: Active Protocol: Document 01/14/21 11:20 [facility] (Rec: 01/14/21 11:22 [facility] [id number]) Pelvic Floor Assessment Pelvic Clock Pelvic Clock 12-3 Atrophy Pelvic Clock 3-6 Atrophy Prolapse Uterine Prolapse Grade 1 Cystocele Grade 1 SEMG (uV) Baseline 1.0 10 Second Contraction 20.2 Holding Good Stability of Hold Good SEMG Stability of Rest Good Contraction Ability Manual Muscle Testing Left 4 Manual Muscle Testing Right 4 Manual Muscle Testing Posterior 4 Muscle Endurance (Seconds) 4 PT-OP-Q Treatments Start: 11/05/20 14:43 Freq: Status: Active Protocol: Document 01/14/21 10:41 [facility] (Rec: 01/14/21 11:12 [facility] [id number]) Therapeutic Exercises Supine Exercises templates for eccentric control and coordination Supine Exercise Name templates for eccentric control and coordination Comments EMG biofeedback was used for pt assist with pelvic floor faciltation pelvic floor quick contractions Supine Exercise Name pelvic floor quick contractions Reps/Minutes x 10 reps 2 sec on 2 sec off 1 Supine Exercise Name pelvic floor long holds Reps/Minutes 10 seconds on 10 seconds off Comments EMG biofeedback was used to help facilitate the pelvic floor Manual Therapy Treatment Manual Techniques recheck pelvic floor tone Comments improved strength of the pelvic floor with MMT Self-Care/Home Management Treatment Education Patient Education Home Exercise Program Other Education answered pts questions regarding use of the NMES, NMES set up on the unit for 10 seconds on/off PT-OP-T Assessment and Plan Start: 11/05/20 14:43 Freq: Status: Active Protocol: Document 01/14/21 10:41 [facility] (Rec: 01/14/21 11:00 [facility] [id number]) Physical Therapy Assessment Goals decreased tone of the rectal sphincter Shelter Goal (LTG) Katarina has improved control of the rectal sphincter and decreased c/o fecal leakage with looser stool. LTG Duration 8 weeks decreased endurance of the pelvic floor Impairment decreased endurance of the levator ani Decreased strength of the levator ani Impairment decreased strength of the levator ani Shelter Goal (LTG) Katarina is able to increase her strength of the levator ani by one muscle grade to 4/5 MMT for improved support of the rectum decreasing complaints of fecal incontinence.
--- NOTE | 2021-01-14 17:14 | PT.OPPOC ---
Physical, Occupational & Speech Therapy At [facility] Current Diagnoses Other specified diseases of anus and rectum (01/14/21) Visit Care Team Role Provider Type ARUNA Laboy Attending Provider Advanced Swimming Pool Maintenance Primary Care Provider Referring Provider Specialty: Family Practice Address: [address] [place] [address], [id number] Email: [email or web address] Plan Of Care PT-OP-T Assessment and Plan Start: 11/05/20 14:43 Freq: Status: Active Protocol: Document 01/14/21 10:41 [facility] (Rec: 01/14/21 11:00 [facility] [id number]) Physical Therapy Assessment Goals decreased tone of the rectal sphincter Mcfp Goal (LTG) Katarina has improved control of the rectal sphincter and decreased c/o fecal leakage with looser stool. excellent progress LTG Duration 8 weeks decreased endurance of the pelvic floor Impairment decreased endurance of the levator ani Mcfp Goal (LTG) Katarina is able to sustain a contraction of the pelvic floor now for 10 seconds in supine excellent progress Decreased strength of the levator ani Impairment decreased strength of the levator ani Mcfp Goal (LTG) Katarina is able to increase her strength of the levator ani by one muscle grade to 4/5 MMT for improved support of the rectum decreasing complaints of fecal incontinence. GOAL MET Assessment Summary Assessment Katarina has more than doubled her strength of her pelvic floor and today had a Average on EMG biofeedback today was 20.2 uv and max of 36.7. She has a home neuromuscular electrical stimulation unit with rectal sensor now that she is renting for 2 months and has been using it now for a couple of weeks. She would like to continue using it and then recheck in 8 weeks for a final visit to test her strength and modify exercises as needed . She feels she is stronger but she hasn't had looser stool lately so she is still concerned about leaking should she have loser stool. I will plan on having her use the NMES for another 6-8 weeks and then rechecking in with her for one last visit in PT. Physical Therapy Plan Frequency and Duration Frequency of Treatment 1x/Week Duration of Treatment 8 Plan of Care Start Date 01/14/21 Plan of Care End Date 03/14/21 Therapeutic Interventions Therapeutic Interventions Home Exercise Program, Neuromuscular Re-education, Patient/Caregiver Education, Self-Care/Home Management, Therapeutic Exercises Next Visit Focus/Plan Next Note Type Treatment Note Next Visit Plan Recheck strength of the pelvic floor next visit, recheck standing endurance contractions. Plan of Care Dates Plan of Care Start Date 01/14/21 Plan of Care End Date 03/14/21 Electronically Signed by: Adwoa Sauceda, PT 01/14/21 0807 Please Sign and Return: I have reviewed this Plan of Care and certify that the skilled therapy services above are required to meet the patient?s needs. Physician Signature Date Printed Name and Credentials Clinical Instructor Signature Printed Name and Credentials
--- NOTE | 2021-03-11 16:38 | PT.OTN ---
Current Diagnoses Other specified diseases of anus and rectum (03/11/21) Physical Therapy Treatment Note PT-OP-A Visit Information Start: 11/05/20 14:43 Freq: Status: Active Protocol: Document 03/11/21 09:48 [facility] (Rec: 03/11/21 10:08 [facility] [id number]) Out-Patient Physical Therapy Visit Information Visit Information Visit Type Treatment Note Visit Start Time 09:48 Visit Stop Time 10:30 Total Visit Minutes 42 Visit Number 7 PT-OP-B Current Condition Start: 11/05/20 14:43 Freq: Status: Active Protocol: Document 11/05/20 16:03 [facility] (Rec: 11/05/20 16:27 [facility] [id number]) Current Condition History of Current Condition Onset Date last couple of years Current Complaints fecal incontinence and small amounts of urinary discharge. History of Current Condition Sometimes if she has a bowel movement that isn't as solid she will have some leakage. Wears a poise micro liner. If she leaks it happens one time a day and that is it. She was having more of a issue 6 months ago. Very small amounts of urinary leakage. She is using a compound estrogen cream. She is taking the estrogen to help her tolerate a vaginal exam. SHe has been taking the cream for over a month. She walks 6-7 miles frequently and notes a very small amount of urinary leakage following. Treatment Goals Patient/Caregiver Goals pts goals include improving strength of the rectal sphincter and pelvic floor to decrease fecal incontinence PT-OP-C Subjective Start: 11/05/20 14:43 Freq: Status: Active Protocol: Document 03/11/21 09:48 [facility] (Rec: 03/11/21 10:08 [facility] [id number]) OP-PT Subjective Patient Comments Patient Comments Pt notes it has been approx a month that she has not had leakage. PT-OP-I Pelvic Floor Start: 11/05/20 14:43 Freq: Status: Active Protocol: Document 03/11/21 09:48 [facility] (Rec: 03/11/21 10:08 [facility] [id number]) Pelvic Floor Assessment Contraction Ability Manual Muscle Testing Left 4 Manual Muscle Testing Right 4 Manual Muscle Testing Posterior 4 Muscle Endurance (Seconds) 4 Comments Pelvic Floor Comments much improved pelvic floor contraction and is able to contract all parts of the levator ani, rectal examination shows improved tone of the rectum PT-OP-Q Treatments Start: 11/05/20 14:43 Freq: Status: Active Protocol: Document 03/11/21 09:48 [facility] (Rec: 03/11/21 10:27 [facility] [id number]) Therapeutic Exercises Supine Exercises pelvic floor quick contractions Supine Exercise Name pelvic floor quick contractions Reps/Minutes x 10 reps 2 sec on 2 sec off 1 Supine Exercise Name pelvic floor long holds Reps/Minutes 10 seconds on 10 seconds off Comments 20 average and max of 33.6 uv Standing Exercises standing pelvic floor contractions Reps/Minutes x 10 reps Manual Therapy Treatment Manual Techniques recheck pelvic floor tone Comments improved strength of the pelvic floor with MMT PT-OP-T Assessment and Plan Start: 11/05/20 14:43 Freq: Status: Active Protocol: Document 03/11/21 09:48 [facility] (Rec: 03/11/21 10:34 [facility] [id number]) Physical Therapy Assessment Goals decreased tone of the rectal sphincter Snf Goal (LTG) Katarina has improved control of the rectal sphincter and decreased c/o fecal leakage with looser stool. Goal met LTG Duration 8 weeks decreased endurance of the pelvic floor Impairment decreased endurance of the levator ani Snf Goal (LTG) Katarina is able to sustain a contraction of the pelvic floor now for 10 seconds in supine goal met Decreased strength of the levator ani Impairment decreased strength of the levator ani Body Man Goal (LTG) Katarina is able to increase her strength of the levator ani by one muscle grade to 4/5 MMT for improved support of the rectum decreasing complaints of fecal incontinence. GOAL MET Assessment Summary Assessment Katarina has done really well with PT and her strength overall is much improved. She has been using the e-stim and feels that in the last month she really hasn't experienced any fecal soiling. She is independent with her HEP and will be discharged at this time Physical Therapy Plan Discharge Physical Therapy Discharge Reasons Goals Met
== END 2021-03-12 07:47 | disposition home or self-care (01) ==
LOC: PHYS 09:45
PROVIDERS: PCP Nurse Practitioner; Referring Provider Nurse Practitioner; Visit Provider Nurse Practitioner
DX: K62.89 Other specified diseases of anus and rectum (principal)
CPT/HCPCS: 97110; 97112; 97140; 97161; 97535

== ENCOUNTER → 2021-05-07 12:36 | Outpatient (CLI) | payer OTHER, SELFPAY | PROVIDERS: PCP Nurse Practitioner; Referring Provider Nurse Practitioner; Visit Provider Nurse Practitioner | DX: M85.88 Other specified disorders of bone density and structure, other site; Z78.0 Asymptomatic menopausal state | CPT/HCPCS: 77080 ==

== ENCOUNTER → 2021-07-31 07:15 | Outpatient (CLI) | payer MEDICARE, OTHER, SELFPAY ==
[2021-07-31 08:23] LABS: Hemoglobin A1C% w Est Avg Glu 5.6 % (4.0-6.0)
[2021-07-31 08:44] LABS: Alanine Aminotransferase 30 IU/L (<35); Albumin 4.2 g/dL (3.5-5.0); Albumin Globulin Ratio 1.6 (1.0-2.8); Alkaline Phosphatase 59 U/L (38-126); Aspartate Aminotransferase 39 IU/L (14-36); BUN Creatinine Ratio 20.5 (6-22); Bilirubin Total 0.4 mg/dL (0.2-1.3); Blood Urea Nitrogen 16 mg/dL (7-17); Calcium 9.4 mg/dL (8.4-10.2); Carbon Dioxide 30 mmol/L (22-32); Chloride 102 mmol/L (98-107); Cholesterol 232 mg/dL (140-199); Estimated Glomerular Filt Rate > 60.0 mL/min (>60); Globulin 2.7 g/dL (1.7-4.1); Glucose 102 mg/dL (80-110); HDL Cholesterol 68 mg/dL (40-60); HEMOLYSIS < 15 (0-50); LDL Cholesterol Calculated 148 mg/dL (<100); Sodium 137 mmol/L (137-145); Total Protein 6.9 g/dL (6.3-8.2); Triglycerides 81 mg/dL (35-150)
[2021-07-31 10:12] LABS: Hep C Virus Ab w/Reflex Quant NEGATIVE s/c (NEGATIVE)
== END ==
PROVIDERS: PCP Nurse Practitioner; Referring Provider Nurse Practitioner; Visit Provider Nurse Practitioner
DX: Z13.6 Encounter for screening for cardiovascular disorders (principal); Z91.89 Other specified personal risk factors, not elsewhere classified; Z13.1 Encounter for screening for diabetes mellitus; Z11.59 Encounter for screening for other viral diseases
CPT/HCPCS: 36415; 80053; 80061; 83036; 86803

== ENCOUNTER → 2021-08-20 08:41 | Outpatient (CLI) | payer MEDICARE, OTHER, SELFPAY ==
--- NOTE | 2021-08-20 08:44 | DI.MG.S_ITS ---
BILATERAL DIGITAL DIAGNOSTIC MAMMOGRAM 3D/2D: 08/20/2021 CLINICAL: Breast lump. Comparison is made to exams dated: 07/09/2020 mammogram, 07/01/2018 mammogram - [facility], and 04/08/2016 mammogram - [facility]. The tissue of both breasts is heterogeneously dense. This may lower the sensitivity of mammography. No significant masses, calcifications, or other findings are seen in either breast. IMPRESSION: INCOMPLETE: NEEDS ADDITIONAL IMAGING EVALUATION There is no abnormality seen in the left breast to correspond with the palpable abnormality at 3-5 o'clock, however, ultrasound is recommended. Ultrasound will be performed immediately following the current exam. This exam was interpreted at Station ID: [id number]. NOTE: For mammograms, a report in lay terms will be sent to the patient. Approximately 15% of breast malignancies will not be visualized mammographically. In the management of a palpable breast mass, a negative mammogram must not discourage biopsy of a clinically suspicious lesion. Electronically Signed By: Brant Dubon M.D. [email or web address]/:08/20/2021 10:11:30 ACR BI-RADS Category 0: Incomplete [id number]
--- NOTE | 2021-08-20 08:44 | DI.US.S_ITS ---
LIMITED ULTRASOUND OF LEFT BREAST: 08/20/2021 CLINICAL: Palpable left breast lump by physician. Comparison is made to exams dated: 08/20/2021 mammogram, 07/09/2020 mammogram, 07/01/2018 mammogram - [facility], 04/08/2016 mammogram, 03/08/2015 mammogram, and 03/05/2014 mammogram - [facility]. Real-time ultrasound of the left breast 3-5 o'clock region was performed on the area of interest. No discrete cystic or solid mass lesion identified in the area of palpable abnormality. IMPRESSION: NEGATIVE There is no sonographic evidence of malignancy. No discrete mass identified in area of patient's palpable abnormality. Followup is recommended clinically. A 1 year screening mammogram is recommended. This exam was interpreted at Station ID: [id number]. Electronically Signed By: Brant Dubon M.D. ddp/:08/20/2021 10:33:24 letter sent: Clinical Evaluation Ultrasound BI-RADS: 1 Negative
== END ==
PROVIDERS: PCP Nurse Practitioner; Referring Provider Nurse Practitioner; Visit Provider Nurse Practitioner
DX: R92.8 Other abnormal and inconclusive findings on diagnostic imaging of breast (principal)
CPT/HCPCS: 76642; 77066; G0279

== ENCOUNTER → 2022-06-23 12:05 | Outpatient (CLI) | payer MEDICARE, OTHER, SELFPAY | PROVIDERS: PCP Nurse Practitioner; Referring Provider Nurse Practitioner; Visit Provider Nurse Practitioner | DX: Z78.0 Asymptomatic menopausal state (principal); Z13.820 Encounter for screening for osteoporosis; M81.0 Age-related osteoporosis without current pathological fracture; Z79.83 Long term (current) use of bisphosphonates | CPT/HCPCS: 77080 ==

== ENCOUNTER → 2022-08-25 08:04 | Outpatient (CLI) | payer MEDICARE, OTHER, SELFPAY ==
--- NOTE | 2022-08-25 | DI.MG.S_ITS ---
BILATERAL DIGITAL SCREENING MAMMOGRAM 3D/2D WITH CAD: 08/25/2022 CLINICAL: Routine screening. Comparison is made to exams dated: 08/20/2021 mammogram, 07/09/2020 mammogram, and 07/01/2018 mammogram - [facility]. Both breasts are heterogeneously dense, which may obscure small masses (category c / 51-75% glandular tissue). Current study was also evaluated with a Computer Aided Detection (CAD) system. No significant masses, calcifications, or other findings are seen in either breast. There has been no significant interval change. IMPRESSION: NEGATIVE There is no mammographic evidence of malignancy. A 1 year screening mammogram is recommended. Based on the Tyrer Cuzick model (a risk assessment model) the patient's lifetime risk is 11.0% and her 10 year risk is 5.7%. According to the ACR, ACS, and NCCN guidelines, an annual breast MRI exam along with mammogram is recommended if the patient's lifetime risk is 20% or greater. This exam was interpreted at Station ID: [id number]. NOTE: For mammograms, a report in lay terms will be sent to the patient. Approximately 15% of breast malignancies will not be visualized mammographically. In the management of a palpable breast mass, a negative mammogram must not discourage biopsy of a clinically suspicious lesion. Electronically Signed By: Rob saldivar/jatin:08/25/2022 12:52:24 letter sent: Normal Exam ACR BI-RADS Category 1: Negative [id number]
== END ==
PROVIDERS: PCP Nurse Practitioner; Referring Provider Nurse Practitioner; Visit Provider Nurse Practitioner
DX: Z12.31 Encounter for screening mammogram for malignant neoplasm of breast (principal)
CPT/HCPCS: 77063; 77067

== ENCOUNTER → 2023-06-29 14:17 | Outpatient (CLI) | payer MEDICARE, OTHER, SELFPAY ==
--- NOTE | 2023-06-29 14:32 | DI.DEXA.S_ITS ---
Bone Density Report Name: HANNAH SHARMA Age: 67 Sex: Female Ethnicity: White Date of : 1955 Indication: osteopenia; monitoring treatment; Referring Provider: [facility] PATE Study: Bone densitometry was performed. Exam Date: June 29, 2023 Accession number: [id number] Bone Density: Region BMD T-score Z-score Classification AP Spine(L1-L4) 0.858 -1.7 0.2 Osteopenia Femoral Neck (Left) 0.715 -1.2 0.4 Osteopenia Total Hip (Left) 0.877 -0.5 0.8 Normal Femoral Neck (Right) 0.715 -1.2 0.4 Osteopenia Total Hip (Right) 0.864 -0.6 0.7 Normal Total Hip Mean 0.870 -0.6 0.8 Normal World Health Organization criteria for BMD impression classify patients as: Normal (T-score at or above -1.0), Osteopenia (T-score between -1.0 and -2.5), or Osteoporosis (T-score at or below -2.5). 10-year Fracture Risk: FRAX not reported because: Treated for osteoporosis Previous Exams: -- Region Exam Age BMD T-score BMD Change BMD Change Date g/cm2 vs Baseline vs Previous -- AP Spine (L1-L4) 06/29/2023 67 0.858 -1.7 0.019 (2.3%) 0.019 (2.3%) 06/23/2022 66 0.838 -1.9 Total Hip(Left) 06/29/2023 67 0.877 -0.5 -0.007 (-0.8%) -0.007 (-0.8%) 06/23/2022 66 0.884 -0.5 Total Hip(Right) 06/29/2023 67 0.864 -0.6 0.013 (1.5%) 0.013 (1.5%) 06/23/2022 66 0.851 -0.7 -- *Denotes significance at 95% confidence level, LSC for AP Spine = 0.022 g/cm2, LSC for Total Hip = 0.027 g/cm2 Impression: The patient has low bone mass, based on the Total Spine T-score. No significant bone loss was observed. Discussion: PATIENT UNDER TREATMENT WITH NO SIGNIFICANT BMD LOSS SINCE LAST EXAM. In an untreated patient, BMD typically declines with age. A lack of decline or gain is usually a sign that treatment is efficacious and fracture risk is reduced. It is important to ask patients whether they are taking their medications and to encourage continued and appropriate compliance with their osteoporosis therapies to reduce fracture risk. It is also important to review their risk factors and encourage appropriate calcium and vitamin D intakes, exercise, fall prevention and other lifestyle measures. Follow-Up: Consider a repeat BMD and Vertebral Fracture Assessment (VFA) exam in 2 years or sooner if medically necessary, to reassess this patient's status. Reported by: KENZIE HARRIS M.D. on 06/29/2023 2:41:00 PM.
== END ==
PROVIDERS: PCP Nurse Practitioner; Referring Provider Nurse Practitioner; Visit Provider Nurse Practitioner
DX: M81.0 Age-related osteoporosis without current pathological fracture (principal); Z78.0 Asymptomatic menopausal state; Z79.83 Long term (current) use of bisphosphonates; Z92.23 Personal history of estrogen therapy
CPT/HCPCS: 77080

== ENCOUNTER → 2023-08-30 14:20 | Outpatient (CLI) | payer MEDICARE, OTHER, SELFPAY ==
--- NOTE | 2023-08-30 14:22 | DI.MG.S_ITS ---
BILATERAL DIGITAL SCREENING MAMMOGRAM 3D/2D WITH CAD: 08/30/2023 CLINICAL: Routine screening. Comparison is made to exams dated: 08/25/2022 mammogram, 08/20/2021 mammogram, and 07/09/2020 mammogram - [facility]. Both breasts are heterogeneously dense, which may obscure small masses (category c / 51-75% glandular tissue). Current study was also evaluated with a Computer Aided Detection (CAD) system. No significant masses, calcifications, or other findings are seen in either breast. IMPRESSION: NEGATIVE There is no mammographic evidence of malignancy. A 1 year screening mammogram is recommended. Based on the Tyrer Cuzick model (a risk assessment model) the patient's lifetime risk is 10.5% and her 10 year risk is 5.6%. According to the ACR, ACS, and NCCN guidelines, an annual breast MRI exam along with mammogram is recommended if the patient's lifetime risk is 20% or greater. This exam was interpreted at Station ID: [id number]. NOTE: For mammograms, a report in lay terms will be sent to the patient. Approximately 15% of breast malignancies will not be visualized mammographically. In the management of a palpable breast mass, a negative mammogram must not discourage biopsy of a clinically suspicious lesion. Electronically Signed By: Belinda huston/jatin:08/31/2023 08:27:38 letter sent: Normal Exam ACR BI-RADS Category 1: Negative [id number]
== END ==
PROVIDERS: PCP Nurse Practitioner; Referring Provider Nurse Practitioner; Visit Provider Nurse Practitioner
DX: Z12.31 Encounter for screening mammogram for malignant neoplasm of breast (principal)
CPT/HCPCS: 77063; 77067

== ENCOUNTER → 2024-02-16 12:40 | Outpatient (CLI) | payer MEDICARE, OTHER, SELFPAY ==
[2024-02-16 13:39] LABS: Add Manual Diff / Slide Review NO; Basophils Absolute Auto 0 /uL (0-100); Basophils Percent Auto 0.2 % (0-2); Eosinophils Absolute Auto 0 /uL (0-450); Eosinophils Percent Auto 0.6 % (2-4); Hematocrit 37.6 % (36-46); Hemoglobin 12.9 g/dL (12.0-16.0); Lymphocytes Absolute Auto 1700 /uL (1100-4500); Lymphocytes Percent Auto 26.4 % (25-40); Mean Corpuscular HGB Conc 34.2 % (30-36); Mean Corpuscular Hemoglobin 31.9 PG (26-34); Mean Corpuscular Volume 93.1 fL (80-100); Monocytes Absolute Auto 700 /uL (0-900); Monocytes Percent Auto 9.9 % (3-14); Neutrophils Absolute Auto 4100 /uL (1500-7000); Neutrophils Percent Auto 62.9 % (50-75); Platelet Count 230 X10^3/uL (150-400); Red Blood Cell Count 4.04 X10^6/uL (4.0-5.2); Red Cell Distribution Width 13.1 % (11.6-14.8); White Blood Cell Count 6.6 X10^3/uL (4.5-11.0)
[2024-02-16 13:57] LABS: HEMOLYSIS < 15 (0-50); Iron 102 ug/dL (37-170)
[2024-02-16 14:00] LABS: Alanine Aminotransferase 32 IU/L (<35); Albumin 4.1 g/dL (3.5-5.0); Albumin Globulin Ratio 1.4 (1.0-2.8); Alkaline Phosphatase 56 U/L (38-126); Aspartate Aminotransferase 39 IU/L (14-36); BUN Creatinine Ratio 20.8 (6-22); Bilirubin Total 0.8 mg/dL (0.2-1.3); Blood Urea Nitrogen 15 mg/dL (7-17); Calcium 9.2 mg/dL (8.4-10.2); Carbon Dioxide 27 mmol/L (22-32); Chloride 108 mmol/L (98-107); Cholesterol 171 mg/dL (140-199); Estimated Glomerular Filt Rate > 60 mL/min (>60); Glucose 81 mg/dL (80-110); HDL Cholesterol 39 mg/dL (40-60); HEMOLYSIS < 15 (0-50); LDL Cholesterol Calculated 118 mg/dL (<100); Potassium 4.5 mmol/L (3.4-5.1); Sodium 138 mmol/L (137-145); Total Protein 7.1 g/dL (6.3-8.2); Triglycerides 69 mg/dL (35-150)
[2024-02-16 14:08] LABS: Percent Iron Saturation 38 % (15-50); Total Iron Binding Capacity 269 ug/dL (265-497); Transferrin 213 mg/dL (206-381)
[2024-02-16 14:33] LABS: Ferritin 117 ng/mL (11-264)
== END ==
LOC: LAB 12:41
PROVIDERS: PCP Nurse Practitioner; Referring Provider Nurse Practitioner; Visit Provider Nurse Practitioner
DX: E78.5 Hyperlipidemia, unspecified (principal); D64.9 Anemia, unspecified; M81.0 Age-related osteoporosis without current pathological fracture
CPT/HCPCS: 36415; 80053; 80061; 82728; 83540; 83550; 85025

== ENCOUNTER → 2024-08-22 08:29 | Outpatient (CLI) | payer MEDICARE, OTHER, SELFPAY ==
--- NOTE | 2024-08-22 08:45 | DI.US.S_ITS ---
PROCEDURE: US PELVIC COMPLETE INDICATIONS: PMB FOR 2 WEEKS 1 YEAR AGO. NO BLEEDING SINCE. TECHNIQUE: Real-time scanning was performed of the pelvic organs, with image documentation. Additional endovaginal scanning was necessary due to incomplete visualization of the adnexal and endometrial structures by transabdominal scanning. COMPARISON: None. FINDINGS: Uterus: Uterus is anteverted and normal in size at approximately 7.1 x 3.6 x 2.6 cm cm. The myometrium is homogeneous. The endometrium echo complex measures up to 4 mm within normal limits however is heterogeneous in appearance most notably at the lower uterine segment and into the cervix. Abnormally thickened , irregular cervical wall and suspected ill-defined vascular mass 1.4 x 0.9 x 0.6 cm suspicious for cervical neoplasm with associated moderate anechoic cervical endocervical canal fluid. Correlation with direct visualization exam, Pap smear are needed. Otherwise cervicitis or other inflammatory process, polyp or other causes could be considered. Ovaries: The ovaries are not visualized per notes. Other: No pathologic free abdominal or pelvic fluid. IMPRESSION: Endometrium echo complex within normal limits however is heterogeneous in appearance most notably at the lower uterine segment into the cervix. Abnormally thickened , irregular cervical wall and suspected mass suspicious for cervical neoplasm, as discussed above. Correlation with direct visualization exam, Pap smear are needed. Otherwise cervicitis or other inflammatory process, polyp or other causes could be considered. Follow-up is needed. Dictated by: Stephen Luther M.D. on 08/22/2024 at 15:36 Approved by: Stephen Luther M.D. on 08/22/2024 at 15:46
== END ==
PROVIDERS: PCP Physician Assistant; Referring Provider Obstetrics & Gynecology; Visit Provider Obstetrics & Gynecology
DX: N95.0 Postmenopausal bleeding (principal)
CPT/HCPCS: 76830; 76856

== ENCOUNTER → 2025-08-03 11:31 | Outpatient (CLI) | payer MEDICARE, OTHER, SELFPAY ==
--- NOTE | 2025-08-03 11:35 | DI.RAD.S_ITS ---
PROCEDURE: XR DEXA AXIAL SKELETON INDICATIONS: annual screenings COMPARISON: [facility], CR, XR DEXA AXIAL SKELETON, 06/29/2023, 14:32. [facility], CR, XR DEXA AXIAL SKELETON, 06/23/2022, 12:26. FINDINGS: Lumbar Spine: Bone mineral density 0.871 g/cm2, T score -1.6, increase of 1.6% compared to prior exam in 2022. . Left Femoral Neck: Bone mineral density 0.757 g/cm2, T score -0.8. Left Hip: Bone mineral density 0.918 g/cm2, T score -0.2, increase of 4.7% compared to prior exam in 2022. . Fracture Risk Calculation (when applicable): 10-year fracture risk of a major osteoporotic fracture 8.3 percent and of a hip fracture 13 percent. (T score greater or equal to -1.0 to: NORMAL) (T score from -1.1 to -2.4: OSTEOPENIA) (T score less than or equal to -2.5: OSTEOPOROSIS) IMPRESSION: Osteopenia. Increased but not statistically significant increased bone mineral density in the lumbar spine and left hip. Follow-up guidelines as follows: Osteoporosis: Consider a repeat DEXA and Vertebral Fracture Assessment (VFA) exam in 2 years or sooner if medically necessary, to reassess this patient's status. Osteopenia: Consider a repeat DEXA in 2-3 years to reassess this patient's status, or if there is a new clinical indication. Normal: Consider a repeat DEXA in 5 years or sooner, or if there is a new clinical indication. All treatment decisions require clinical judgment and consideration of individual patient factors, including patient preferences, comorbidities, previous drug use, risk factors not captured in the FRAX model (e.g., frailty, falls, vitamin D deficiency, increased bone turnover, interval significant decline in bone density ) and possible under- or over-estimation of fracture risk by FRAX. In addition, the NOF Guide recommends that FDA-approved medical therapies be considered in postmenopausal women and men age >= 50 years with a: * Hip or vertebral (clinical or morphometric) fracture * T-score of <=-2.5 at the spine or hip * Ten-year fracture probability by FRAX of >= 3% for hip fracture or >=20% for major osteoporotic fracture. Dictated by: Usman Ochoa M.D. on 08/03/2025 at 13:46 Approved by: Usman Ochoa M.D. on 08/03/2025 at 13:47
--- NOTE | 2025-08-03 11:35 | DI.MG.S_ITS ---
MM screening mammo BI: 08/03/2025. BI-RADS: 1 CLINICAL: 70-year old female for bilateral screening mammogram. Tyrer-Cuzick lifetime risk of 7.3%. No personal or first-degree family history of breast cancer. PRIOR EXAMS 08/30/2023, 08/25/2022, 08/20/2021, 07/09/2020. MAMMOGRAPHY TECHNIQUE: 2D and 3D (tomosynthesis) digital mammographic views obtained, with additional images as needed for full coverage. Current study was also evaluated with a Computer Aided Detection (CAD) system. DENSITY C. The breasts are heterogeneously dense, which may obscure small masses. MAMMOGRAPHY FINDINGS Bilateral: No suspicious mass, asymmetry, microcalcification, or other abnormality seen. IMPRESSION: * No evidence of malignancy. RECOMMENDATIONS Bilateral * Annual screening mammography. OVERALL ASSESSMENT CATEGORY BI-RADS-1: Negative. [employer] recommends annual screening mammography beginning at age 40 for women with average risk of breast cancer. ELECTRONICALLY SIGNED: Bhavin Granados M.D. on 08/05/2025 at 08:16:29 PM PT Interpreting Station ID: [id number]
== END ==
LOC: MAMMO 11:34
PROVIDERS: PCP Physician Assistant; Referring Provider Physician Assistant; Visit Provider Physician Assistant
DX: Z12.31 Encounter for screening mammogram for malignant neoplasm of breast (principal); R92.333 Mammographic heterogeneous density, bilateral breasts; M81.0 Age-related osteoporosis without current pathological fracture
CPT/HCPCS: 77063; 77067; 77080

== ENCOUNTER 2025-09-21 06:33 | Day surgery (SDC) | payer MEDICARE, OTHER, SELFPAY ==
[2025-09-21 07:18] VITALS: BP 120/80; PULSE 65; RESP 16; TEMP 36.6; O2SAT 97
[2025-09-21] MEDS: LACTATED RINGERS 1,000 ML 42 ML IV (07:20)
--- NOTE | 2025-09-21 07:39 | PM.HP.IH.1 ---
History of Present Illness History of Present Illness Date Patient Seen: 09/21/25 Time Patient Seen: 07:39 Chief complaint: Colonoscopy Narrative: Katarina is a 70 year old woman who is here for a colonoscopy. Her last colonoscopy was 5 years ago and no polyps were found but they did not get all the way to end so she had to have a barium enema. [facility] Medical History Abnormal vaginal bleeding in postmenopausal patient Osteoporosis Wears glasses Plantar warts (~2008) Restless leg syndrome Neck pain Osteopenia (~2014) Plantar fasciitis (~2017) Carpal tunnel syndrome (~1999) Rubella Mumps (~1965) Measles (~1961) Chicken pox (~1964) Anemia Tinnitus (~2015) Adenomatous polyp Heart murmur Actinic keratosis Depression (~1997) Right wrist fracture (~2014) Osteoporosis (~2016) Hyperlipidemia Surgical History Anesthesia History of oral surgery History of tonsillectomy (~09/1975) Family History Father Cancer Hypertension Pulmonary embolism Mother Diabetes mellitus History of heart disease Hypertension Mental health problem Stroke Brother Mental health problem Brother Diabetes mellitus Back problem Sister Arthritis Back problem Sister Sjogren's disease Back problem Thyroid condition Sister Diabetes mellitus Back problem Metabolic syndrome Goiter Sister Sjogren's disease Herniated disc Hypertension Back problem Grandfather Alcoholic Grandmother History of heart disease Hypertension Grandfather History of heart disease Grandmother Cancer Social History household members: spouse Smoking Status: Never smoker alcohol intake: current Meds Home Medications and Allergies Home Medications ?Medication ?Instructions ?Recorded ?Confirmed ?Type One-A-Day Women's 50 Plus 1 tab PO DAILY 07/02/20 08/23/24 History ascorbic acid (vitamin C) 1,000 mg 1,000 mg PO DAILY 07/02/20 08/23/24 History tablet (Vitamin C) calcium 2 tab PO BID 07/02/20 08/23/24 History hzk-yyo-V1-Sx-jtypzj-Jo-boron 250 mg-40 mg-125 unit tablet (Citracal-D3 Plus Magnesium) ferrous sulfate 325 mg (65 mg 65 mg PO DAILY 07/02/20 08/23/24 History iron) tablet (iron) glucosamine sulf dipot 1 cap PO 07/02/20 08/23/24 History chlr,msm,chond 550 mg-C 30 mg-delphine 1 mg capsule (Glucosamine Chondroitin) omega-3 fatty acids-fish oil 340 1 cap PO TID 02/16/24 08/23/24 History mg-1,000 mg capsule (Fish Oil) ciprofloxacin HCl 500 mg tablet 500 mg PO Q12H #6 tabs 02/17/24 08/23/24 Rx estradiol 0.05 mg/24 hr semiweekly 1 patch transdermal 2XW #24 ea 06/05/24 09/21/25 Rx transdermal patch progesterone micronized 200 mg 200 mg PO BEDTIME 90 days #90 caps 06/05/24 09/21/25 Rx capsule Vaginal Estriol 1mg vag supp See Rx Instructions .Route 06/14/24 09/21/25 Rx .COMPLEX #90 units Allergies Allergy/AdvReac Type Severity Reaction Status Date / Time codeine Allergy Mild Nausea Verified 09/21/25 07:10 Exam Vital Signs (past 8 hours): - 09/21/25 07:18 Temperature 97.9 F Pulse Rate 65 Respiratory Rate 16 Blood Pressure 120/80 Pulse Oximetry 97 Oxygen Delivery Method Room Air Oxygen Delivery Method Room Air Const General: healthy appearing Assessment & Plan Assessment and plan (1) History of colon polyps: Status: Acute Plan Colonoscopy Time-Based Coding :: [TOTAL MINUTES] spent with patient and on the chart (including review of chart, obtaining history, exam, reviewing outside data, placing orders, documenting exam and treatment plan, and counseling patient) on [DATE]. PROFEE Facility Examiner Document charge(s): No
[2025-09-21 08:11] VITALS: BP 100/59; PULSE 69; RESP 15; TEMP 36.9; O2SAT 96
--- NOTE | 2025-09-21 08:15 | P.OP.COLON_ITS ---
Operative Date/Time/Diagnoses Date of procedure: 09/21/25 Time of procedure: 08:15 Pre-op diagnosis: History of polyps Post-op diagnosis: same Procedure & Clinicians Study performed: Colonoscopy Same procedure(s) as scheduled: Yes Surgeon: Isaac Renteria Anesthesia Type: MAC +/- Procedure Notes Procedure in detail: Surgeon: Isaac Renteria MD Anesthesia: Ev Mac [employer] Procedure: The patient was brought to the endoscopy suite, placed in left lateral decubitus position. The patient was connected to monitoring devices. A time-out was performed. Sedation was administered. Once the patient was adequately sedated, a digital rectal exam was performed and was normal. The scope was then inserted and advanced to the cecum where the appendiceal orifice was identified and photographed. The scope was then slowly withdrawn over greater than 6 minutes. The mucosa was thoroughly inspected. No abnormalities were found. The scope was retroflexed in the rectum. The scope was straightened and removed. The patient was awakened and brought to recovery. Scope withdrawal time: 7 minutes Sedation time: 13 minutes EBL: 0 Findings: Normal colon Estimated Blood Loss: 0 Complications: none Post-procedure Recommendations: Colonoscopy in 10 years Disposition: PACU
[2025-09-21 08:17] VITALS: BP 104/57; PULSE 66; RESP 18; TEMP 36.9; O2SAT 97
[2025-09-21 08:23] VITALS: BP 106/65; PULSE 70; RESP 15; TEMP 36.9; O2SAT 98
[2025-09-21 08:28] VITALS: BP 105/65; PULSE 74; RESP 18; TEMP 36.9; O2SAT 98
== END 2025-09-21 08:32 | disposition home or self-care (01) ==
PROVIDERS: PCP Physician Assistant; Referring Provider Surgery; Visit Provider Surgery
PROC: 0DJD8ZZ Inspection of Lower Intestinal Tract, Via Natural or Artificial Opening Endoscopic (ICD-10-PCS; CPT 45378; principal; 2025-09-21 07:45)
DX: Z12.11 Encounter for screening for malignant neoplasm of colon (principal); Z86.0100 Personal history of colon polyps, unspecified
CPT/HCPCS: G0105; J2704; J7120